=== PATIENT | male | born 1950 | race Caucasian/White ===

== ENCOUNTER 2019-02-06 09:23 | Day surgery (SDC) | payer OTHER ==
[~2019-02-06 09:23] MED LIST: PROPOFOL INJ 200 MG/20 ML VIAL IV ONE
[2019-02-06 11:32] VITALS: BP 136/92
--- NOTE | 2019-02-06 12:28 | Operative Report ---
Operative Report DATE OF SURGERY: 02/06/19 Operative Report: The risks, benefits and alternatives of the procedure including the risk of bleeding, perforation requiring surgery have been explained to the patient in detail and informed consent has been obtained. The patient is taken back to the endoscopy suite and placed in the left, lateral decubital position. Timeout was called. Propofol medication is administered. Rectal examination is done which did not reveal any masses, tears or fissures. An Olympus videoscope was introduced into the patient's rectum. Scope was then carefully advanced all the way to the cecum. The cecum was identified by the usual anatomical landmarks including the ileocecal valve as well as the appendiceal office. Photodocumentation is obtained. The scope was then sequentially pulled back via the various segments of the colon including the ascending colon, hepatic flexure, transverse colon, splenic flexure, descending colon finding to the rectosigmoid portions of the colon. Retroflexion maneuver is performed. PREOPERATIVE DIAGNOSIS: Personal history of polyp POSTOPERATIVE DIAGNOSIS: Sigmoid colon polyp that was removed via snare polypectomy and retrieved; it is under 1 cm OPERATION: Colonoscopy with snare polypectomy SURGEON: MERCEDES MARIEE ANESTHESIA: LMAC TISSUE REMOVED OR ALTERED: As noted above. COMPLICATIONS: None. ESTIMATED BLOOD LOSS: None. INTRAOPERATIVE FINDINGS: As noted above. PROCEDURE: Patient tolerated the procedure well. No immediate postprocedure complications are noted. Patient is discharged in good condition. Discharge date 02/06/2019. Discharge diet: Regular. Discharge activity: Regular. 2- 3-week follow-up to discuss findings. 3 to 5-year surveillance colonoscopy. Patient is instructed to call the office or proceed to the emergency room should there be any further questions. Wait on the pathology.
== END 2019-02-06 11:35 | disposition home or self-care (01) ==
LOC: END 09:23
PROVIDERS: ATTEND Internal Medicine Gastroenterology
DX: Z12.11 Encounter for screening for malignant neoplasm of colon (principal); D12.5 Benign neoplasm of sigmoid colon; Z86.010 Personal history of colon polyps; Z87.891 Personal history of nicotine dependence; Z95.0 Presence of cardiac pacemaker; I48.91 Unspecified atrial fibrillation; I20.9 Angina pectoris, unspecified
CPT/HCPCS: 45385; 88305 ×2; 00811; J2704; 811